=== PATIENT | male | born 1975 | race Caucasian/White ===

== ENCOUNTER 2017-09-02 09:14 | Emergency (ER) | payer SELFPAY ==
[2017-09-02] MEDS ORDERED: Lidocaine 1% 50 ML MDV INJECT ONE (10:19)
[2017-09-02] MEDS ORDERED: cefTRIAXone 1 GM, Lidocaine 1% 2.1 ML IM SCH ×2 (11:30)
--- NOTE | 2017-09-02 11:45 | EDM.PDOC ---
ED HPI GENERAL MEDICAL PROBLEM - General Chief Complaint: Upper Extremity Injury/Pain Stated Complaint: RIGHT HAND INJURY Time Seen by Provider: 09/02/17 09:31 Source of Information: Reports: Patient History Limitations: Reports: No Limitations - History of Present Illness INITIAL COMMENTS - FREE TEXT/NARRATIVE: The patient was working on a bobcat and got his right hand in the fan. He cut his right thumb and right index finger. He went to the [facility] and they sent him here. He is right handed. His tetanus is up to date. Onset: Sudden Duration: Hour(s): Location: Reports: Upper Extremity, Right (Hand) Quality: Reports: Sharp Severity: Moderate Improves with: Reports: None Worsens with: Reports: None Context: Reports: Activity (Working on a bobcat) Associated Symptoms: Reports: No Other Symptoms Right Hand Pain Score (Numeric/FACES): 8 - Related Data Allergies Allergy/AdvReac Type Severity Reaction Status Date / Time No Known Allergies Allergy Verified 09/02/17 09:38 Home Meds: Home Meds Cephalexin [Keflex] 500 mg PO Q6HR #40 cap 09/02/17 [Rx] Past Medical History Gastrointestinal History: Reports: None Genitourinary History: Reports: Renal Calculus Neurological History: Reports: Migraines - Past Surgical History GI Surgical History: Reports: Appendectomy Social & Family History - Family History Family Medical History: Noncontributory - Tobacco Use Smoking Status *Q: Current Every Day Smoker Years of Tobacco use: 4 Packs/Tins Daily: 0.5 - Recreational Drug Use Recreational Drug Use: No Review of Systems - Review of Systems Review Of Systems: See Below Constitutional: Reports: No Symptoms Eyes: Reports: No Symptoms Ears: Reports: No Symptoms Nose: Reports: No Symptoms Respiratory: Reports: No Symptoms Cardiovascular: Reports: No Symptoms GI/Abdominal: Reports: No Symptoms Genitourinary: Reports: No Symptoms Musculoskeletal: Reports: Other (Right hand injury) ED EXAM, GENERAL - Physical Exam Exam: See Below Exam Limited By: No Limitations General Appearance: Alert, No Apparent Distress Ears: Normal External Exam Nose: Normal Inspection Head: Atraumatic, Normocephalic Neck: Normal Inspection Respiratory/Chest: No Respiratory Distress Extremities: Other (Lacerations to the right thumb and index finger) ED TRAUMA EXTREMITY PROCEDURES - Laceration/Wound Repair Right Finger Lac/Wound Length In cm: 10 Appearance: Subcutaneous, Linear, Clean Distal NVT: Neuro & Vascular Intact, Other (Partial tear of the extensor tendon) Anesthetic Type: Digital Local Anesthesia - Lidocaine (Xylocaine): 1% Plain Skin Prep: Saline Exploration/Debridement/Repair: Wound Explored, In a Bloodless Field, Explored to Base Closed With: Sutures Suture Size: 4-0 # of Sutures: 3 Suture Type: Nylon, Interrupted, Simple Tetanus Status Addressed: Yes Complications: No - Splinting Right Upper Extremity Splint Site: Right hand Pre-Procedure NV Status: Normal Post-Procedure NV Status: Normal Splint Material: Fiberglass Splint Design: Volar Applied & Form Fitted By: Provider Provider Post-Splint Application NV Check: NV Status Normal, Good Position Complications: No Course - Vital Signs Last Recorded V/S: Last Vital Signs Temp 96.9 F 09/02/17 09:31 Pulse 55 L 09/02/17 09:31 Resp 18 09/02/17 09:31 BP 99/68 09/02/17 09:31 Pulse Ox 99 09/02/17 09:31 - Orders/Labs/Meds Orders: Active Orders 24 hr Category Date Time Status Hand 2V Rt [CR] Stat Exams 09/02/17 09:35 Taken cefTRIAXone [Rocephin] 1 gm Med 09/02/17 11:30 Active Lidocaine 1% [Xylocaine 1%] 2.1 ml IM Q24H Medication Orders Ceftriaxone Sodium 1 gm/ (Lidocaine HCl 2.1 ml) 0 gm IM Q24H LEE Last Admin: 09/02/17 11:57 Dose: 2.1 inj Meds: Medications Generic Name Dose Route Start Last Admin Trade Name Freq PRN Reason Stop Dose Admin Ceftriaxone Sodium 1 gm/ 0 gm 09/02/17 11:30 09/02/17 11:57 Lidocaine HCl 2.1 ml IM 2.1 inj Q24H LEE Administration Discontinued Medications Generic Name Dose Route Start Last Admin Trade Name Freq PRN Reason Stop Dose Admin Lidocaine HCl 50 ml 09/02/17 10:19 09/02/17 10:36 Xylocaine 1% INJECT 09/02/17 10:20 50 ml ONETIME ONE Administration - Re-Assessments/Exams Free Text/Narrative Re-Assessment/Exam: 09/02/17 11:54 I ordered an x-ray and there is no fracture. I did a digital block and I was able to examine the wound better. He had a partial tear of his extensor tendon to the right index finger. I called [facility] and talked with Dr Major the orthopedic surgeon stationary engineer and he wanted me to loosely approximate the wound and give him antibiotics. They will see him tomorrow and fix it. I gave him a shot of rocephin and I will get him on keflex. He does not want anything for pain. Addition procedure note for a laceration. He has a 1.5cm laceration to the web space between the 1st and 1nd digits on his right hand. It is curved. I anaesthetized the wound with lidocaine 1% after cleaning it with saline. I examined the wound in a bloodless field and there was nothing abnormal seen. I used 2 4-0 nylon sutures to close the wound. There were no complications and he tolerated the procedure well. Departure - Departure Time of Disposition: 12:00 Disposition: Home, Self-Care 01 Condition: Good Clinical Impression: Laceration of right index finger Qualifiers: Encounter type: initial encounter Damage to nail status: with damage Foreign body presence: without foreign body Qualified Code(s): S61.310A - Laceration without foreign body of right index finger with damage to nail, initial encounter Laceration of right thumb Qualifiers: Encounter type: initial encounter Damage to nail status: without damage Foreign body presence: without foreign body Qualified Code(s): S61.011A - Laceration without foreign body of right thumb without damage to nail, initial encounter Laceration of right hand Qualifiers: Encounter type: initial encounter Foreign body presence: without foreign body Qualified Code(s): S61.411A - Laceration without foreign body of right hand, initial encounter Extensor tendon laceration of finger with open wound Qualifiers: Encounter type: initial encounter Qualified Code(s): S66.529A - Laceration of intrinsic muscle, fascia and tendon of unspecified finger at wrist and hand level, initial encounter - Discharge Information Prescriptions: Cephalexin [Keflex] 500 mg PO Q6HR #40 cap Referrals: PCP,None [Primary Care Provider] - Jese Major MD [Ordering Only Provider] - 1 Day Forms: ED Department Discharge Additional Instructions: Keep the splint and dressings on tonight. Take tylenol or motrin for pain. Elevate your hand above your heart as much as you can for the next couple of days. Follow up at the [facility] tomorrow morning. Call [phone] to make an appointment with either Laila or Kristin. They are the physician assistance that will be doing the preop. One of the surgeons will be doing the surgery. - My Orders Last 24 Hours: My Active Orders 09/02/17 09:35 Hand 2V Rt [CR] Stat 09/02/17 11:30 cefTRIAXone [Rocephin] 1 gm Lidocaine 1% [Xylocaine 1%] 2.1 ml IM Q24H - Assessment/Plan Last 24 Hours: My Active Orders 09/02/17 09:35 Hand 2V Rt [CR] Stat 09/02/17 11:30 cefTRIAXone [Rocephin] 1 gm Lidocaine 1% [Xylocaine 1%] 2.1 ml IM Q24H ED LACERATION/WOUND PROCEDURES - Laceration/Wound Repair Finger Laceration/Wound Length In cm: 6 Appearance: Subcutaneous, Stellate Distal NVT: Neuro & Vascular Intact, No Tendon Injury Anesthetic Type: Digital Local Anesthesia - Lidocaine (Xylocaine): 1% Plain Skin Prep: Saline Wound Exploration, Debridement, Revision: Wound Explored, In a Bloodless Field, Explored to Base Suture Size: 4-0 # of Sutures: 8 Suture Type: Nylon, Interrupted, Simple Tetanus Status Addressed: Yes Complications: None
--- NOTE | 2017-09-03 10:40 | CR ---
Right hand: Two views of the right hand were obtained. Diffuse soft tissue swelling is noted within the second digit. Soft tissue injury also seen within the second digit. Additional soft tissue swelling and injury is seen within the thumb. No definite acute fracture or dislocation is seen. Impression: 1. Diffuse soft tissue swelling and soft tissue injury within the thumb and first digit. 2. No acute bony abnormality is appreciated. Diagnostic code #3
== END 2017-09-02 12:24 | disposition home or self-care (01) ==
LOC: JD.ED 09:14
DX: S61.310A Laceration without foreign body of right index finger with damage to nail, initial encounter (principal); S61.011A Laceration without foreign body of right thumb without damage to nail, initial encounter; S56.421A Laceration of extensor muscle, fascia and tendon of right index finger at forearm level, initial encounter; F17.210 Nicotine dependence, cigarettes, uncomplicated; W45.8XXA Other foreign body or object entering through skin, initial encounter; Y99.0 Civilian activity done for income or pay
CPT/HCPCS: 12005; 29125; 73120; 96372; 99284; J0696; 99283